=== PATIENT | male | born 1995 | race Caucasian/White ===

== ENCOUNTER 2021-07-02 09:52 | Emergency (ER) | payer OTHER ==
[~2021-07-02 09:52] MED LIST: NORCO 5-325 TA1 EACH PO
[2021-07-02] MEDS ORDERED: NORCO 5-325 TA1 EACH PO (11:40)
== END 2021-07-02 11:56 | disposition home or self-care (01) ==
LOC: FER 09:52
DX: S82.002A Unspecified fracture of left patella, initial encounter for closed fracture (principal); V49.00XA Driver injured in collision with unspecified motor vehicles in nontraffic accident, initial encounter; Y92.410 Unspecified street and highway as the place of occurrence of the external cause
CPT/HCPCS: 73564